=== PATIENT | female | born 1935 | race Two or more races ===

== ENCOUNTER 2018-02-16 22:47 | Emergency (ER) | payer MEDICARE, MEDICAID ==
[~2018-02-16] VITALS: Ht 157.5 cm; Wt 79.4 kg
--- NOTE | 2018-02-16 22:47 | NUR ---
R SHOULDER/NECK PAIN S/P FALL IN BATHROOM. FAMILY AT BEDSIDE. PT IS CRYING FROM PAIN 05/10. VSS WILL CONTINUE TO MONITOR FOR ANY CHANGES DURING THE SHIFT.
--- NOTE | 2018-02-16 22:48 | NUR ---
ER MD MACHUCA AT [facility]
[2018-02-16] MEDS ORDERED: MORPHINE SULFATE INJ 2 MG/ML DISP.SYRIN IM ONE (23:00)
[2018-02-16] MEDS ORDERED: MORPHINE SULFATE INJ 2 MG/ML DISP.SYRIN ONE (23:05)
--- NOTE | 2018-02-16 23:09 | NUR ---
CERVICLE COLLAR PLACED AND OT OFF TO CT
[2018-02-17 00:44] VITALS: BP 165/64
== END 2018-02-17 00:46 | disposition home or self-care (01) ==
LOC: ER 22:56
DX: S09.8XXA Other specified injuries of head, initial encounter (principal); S13.4XXA Sprain of ligaments of cervical spine, initial encounter; M25.511 Pain in right shoulder; W01.198A Fall on same level from slipping, tripping and stumbling with subsequent striking against other object, initial encounter; Y93.89 Activity, other specified; Y92.002 Bathroom of unspecified non-institutional (private) residence as the place of occurrence of the external cause; Y99.8 Other external cause status
CPT/HCPCS: 70450; 72125; 73030; 96372; 99284; A4606; J2270; L0172; Z7610